=== PATIENT | female | born 1965 ===

== ENCOUNTER 2022-10-01 10:49 | Outpatient (CLI) | payer MEDICARE, SELFPAY | END 2022-10-01 10:50 | disposition home or self-care (01) | PROVIDERS: PCP Family Medicine; Visit Provider Emergency Medicine | DX: Z01.419 Encounter for gynecological examination (general) (routine) without abnormal findings (principal); E61.1 Iron deficiency; R73.03 Prediabetes; L65.9 Nonscarring hair loss, unspecified; Z13.6 Encounter for screening for cardiovascular disorders | CPT/HCPCS: 80053; 82728; 84443 ==

== ENCOUNTER 2022-10-08 08:02 | Outpatient (CLI) | payer OTHER, SELFPAY | END 2022-10-08 08:03 | disposition home or self-care (01) | LOC: NFLDREF 10-09 01:04 | PROVIDERS: PCP Family Medicine; Referring Provider Family Medicine; Visit Provider Emergency Medicine | DX: Z13.6 Encounter for screening for cardiovascular disorders (principal) | CPT/HCPCS: 80061 ==